=== PATIENT | male | born 1975 | race Caucasian/White ===

== ENCOUNTER → 2018-06-06 | Outpatient (CLI) | payer BC ==
--- NOTE | 2018-06-07 08:43 | KCIC ---
Examination: MRI of the right foot without contrast HISTORY: History of right foot pain COMPARISON: None available technique: Multiplanar, multisequence MR imaging of the right foot were performed without contrast FINDINGS: The alignment of the metatarsophalangeal joints, interphalangeal joints grossly appears unremarkable. There is no acute fracture or dislocation identified. There is small amount of fluid identified between the heads of the second and third and third and fourth metatarsals likely intermetatarsal bursitis. 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 IMPRESSION: 1. Small amount of fluid identified between the heads of the second and third and third and fourth metatarsals likely intermetatarsal bursitis. 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 Electronically signed by: Tc Greene MD (06/07/2018 8:40 AM) [id number]
== END | disposition home or self-care (01) ==
LOC: KCIC MRI 09:07
PROVIDERS: ATTEND Orthopaedic Surgery
DX: M79.671 Pain in right foot (principal)
CPT/HCPCS: 73718